=== PATIENT | female | born 2000 | race African-American/Black ===

== ENCOUNTER 2023-09-27 21:41 | Emergency (ER) | payer MEDICAID ==
[~2023-09-27] VITALS: Ht 165.1 cm; Wt 85.0 kg
[2023-09-27 22:02] VITALS: O2SAT 100
[2023-09-28] MEDS ORDERED: AMOXICILLIN 500 MG CAPSULE PO ONE (00:30)
[2023-09-28] MEDS ORDERED: ACETAMINOPHEN 500MG TABLET PO ONE (00:30)
[2023-09-28] MEDS ORDERED: IBUPROFEN 600MG TABLET PO ONE (00:30)
[2023-09-28 00:54] VITALS: BP 123/81
[2023-09-28] MEDS ORDERED: AMOX-494 MT (00:54)
[2023-09-28] MEDS ORDERED: IBUP-2029 MT (00:54)
[2023-09-28 01:48] VITALS: PULSE 88; RESP 20; TEMP 102.6
== END 2023-09-28 01:50 | disposition home or self-care (01) ==
LOC: ER 21:41
DX: J02.9 Acute pharyngitis, unspecified (principal); R50.9 Fever, unspecified
CPT/HCPCS: 81025; 87430; 99284

== ENCOUNTER 2025-09-24 17:58 | Emergency (ER) | payer MEDICAID, MEDICARE, OTHER ==
[~2025-09-24] VITALS: Ht 165.1 cm; Wt 93.0 kg
[~2025-09-24 17:58] MED LIST: AMOX-494 MT; IBUP-1455 MT
[2025-09-24 18:00] VITALS: O2SAT 98
[2025-09-24 18:01] VITALS: BP 129/82; PULSE 63; RESP 18; TEMP 36.4; O2SAT 98
== END 2025-09-24 18:43 | disposition home or self-care (01) ==
LOC: ER 17:58
DX: T70.0XXA Otitic barotrauma, initial encounter (principal); X58.XXXA Exposure to other specified factors, initial encounter
CPT/HCPCS: 99282